=== PATIENT | female | born 1950 | race Caucasian/White ===

== ENCOUNTER 2016-09-20 16:22 | Emergency (ER) | payer MEDICARE, OTHER ==
[2012-12-25 14:05] VITALS: BMI 27.1
[~2016-09-20 16:22] MED LIST: APPLE CIDER VINEGAR; BENEFIBER1 PKT; BIOTIN; BIOTIN5 MG PO; CALCIUM CITRATE1 TAB PO; CALCIUM OR; CARAFATE1 G/10 ML PO; FERROUS SULFAT325 MG PO; FLOVENT DI50 MCG/DIS INH; GEMFIBROZIL600 MG PO; GLUCOSAMINE HC500 MG PO; IRON; L-LYSINE500 M1 PO; LORTAB LIQUID15 ML PO; MULTI-DAY VITAM1 TAB PO; NEXIUM40 MG PO; NIASPAN500 MG PO; PHENERGAN25 M1 PO; RISEDRONATE 30 MG PO; ROGAINE60 M1 TP; TAZORAC TP; VITAMIN B-1000 MCG/M IM; VITAMIN B-1250 MCG PO; WELLBUTRIN SR150 MG PO; WELLBUTRIN XL300 M1 PO; ZANAFLEX4 MG PO; ZYRTEC10 MG PO; [UNRECOGNIZED DRUG - OTHER]; [UNRECOGNIZED DRUG - REMARK] PO
== END 2016-09-20 19:31 | disposition home or self-care (01) ==
LOC: D.ER 16:22
DX: F41.9 Anxiety disorder, unspecified (principal); T50.905A Adverse effect of unspecified drugs, medicaments and biological substances, initial encounter; Y92.89 Other specified places as the place of occurrence of the external cause

== ENCOUNTER → 2018-09-01 07:42 | Outpatient (CLI) | payer MEDICARE, OTHER | END | disposition home or self-care (01) | LOC: D.CT 07:42 | DX: I65.29 Occlusion and stenosis of unspecified carotid artery (principal) ==